=== PATIENT | female | born 1945 | race Native Hawaiian/Other Pacific Islander ===

== ENCOUNTER 2021-06-08 08:56 | Outpatient (CLI) | payer OTHER | END 2021-06-08 19:09 | disposition home or self-care (01) | LOC: NM 08:56 | PROVIDERS: ATTEND Surgery | DX: Z85.3 Personal history of malignant neoplasm of breast (principal) | CPT/HCPCS: A9561 ==

== ENCOUNTER → 2022-07-13 | Outpatient (CLI) | payer OTHER | LOC: RAD 10:22 | PROVIDERS: ATTEND Physician Assistant | DX: M54.6 Pain in thoracic spine (principal); M54.59 Other low back pain; M54.2 Cervicalgia ==